=== PATIENT | male | born 1980 | race Caucasian/White ===

== ENCOUNTER 2019-11-02 00:42 | Emergency (ER) | payer SELFPAY ==
[2019-11-02] MEDS ORDERED: Ketorolac 30 MG/ML SDV IVPUSH ONE (00:46)
[2019-11-02] MEDS ORDERED: Sodium Chloride 0.9% 10 ML Syringe FLUSH PRN (00:46)
[2019-11-02] MEDS ORDERED: Sodium Chloride 0.9% 2.5 ML Syringe FLUSH PRN (00:46)
[2019-11-02] MEDS ORDERED: Lidocaine 5% 700 MG Patch ONE (00:54)
--- NOTE | 2019-11-02 00:54 | EDM.PDOC ---
ED HPI GENERAL MEDICAL PROBLEM - General Chief Complaint: Chest Pain Stated Complaint: cough, right rib pain, chest wall pain Time Seen by Provider: 11/02/19 00:45 Source of Information: Reports: Patient History Limitations: Reports: No Limitations - History of Present Illness INITIAL COMMENTS - FREE TEXT/NARRATIVE: History of present illness: [Patient is 39-year-old male with a history of smoking who presents with a cough for the last month, right-sided rib pain that began earlier this evening. He states he felt like his cough was improving over the last week but during one episode of coughing earlier tonight felt a pop in his right rib cage and since then has had pain and difficulty with deep inspiration due to the pain. He denies any cardiac history. Denies chest pain, only endorses chest wall pain. Denies fever. Denies known COVID-19 exposure. Denies recent travel. Denies vomiting, diarrhea, and no other URI symptoms beyond the cough. Has not taken anything to relieve his symptoms.] Review of systems: As per history of present illness and below otherwise all systems reviewed and negative. Past medical history: As per history of present illness and as reviewed below otherwise noncontributory. Surgical history: As per history of present illness and as reviewed below otherwise noncontributory. Social history: No reported history of drug or alcohol abuse. Family history: As per history of present illness and as reviewed below otherwise noncontributory. Physical exam: HEENT: Atraumatic, normocephalic, pupils reactive, negative for conjunctival pallor or scleral icterus, mucous membranes moist, throat clear, neck supple, nontender, trachea midline. Lungs: Clear to auscultation, breath sounds equal bilaterally, chest nontender. Heart: S1S2, regular, negative for clicks, rubs, or JVD. Abdomen: Soft, nondistended, nontender. Negative for masses or hepatosplenomegaly. Negative for costovertebral tenderness. Chest Wall: Right sided rib tenderness, no deformity or bruising noted. Pelvis: Stable nontender. Genitourinary: Deferred. Rectal: Deferred. Extremities: Atraumatic, negative for cords or calf pain. Neurovascular unremarkable. Neuro: Awake, alert, oriented. Motor and sensory grossly intact throughout. Exam nonfocal. Diagnostics: [] Therapeutics: [] Impression: [] Plan: [] Definitive disposition and diagnosis as appropriate pending reevaluation and review of above. R upper ribs/chest Pain Score (Numeric/FACES): 10 - Related Data Allergies Allergy/AdvReac Type Severity Reaction Status Date / Time No Known Allergies Allergy Verified 11/02/19 00:49 Home Meds: Home Meds Azithromycin 1 gm PO ASDIRECTED 5 Days #1 packet 11/02/19 [Rx] Lidocaine 5% [Lidoderm 5%] 1 patch TOP DAILY #5 patch 11/02/19 [Rx] Social & Family History - Tobacco Use Smoking Status *Q: Current Every Day Smoker ED ROS GENERAL - Review of Systems Review Of Systems: Comprehensive ROS is negative, except as noted in HPI. ED EXAM, GENERAL - Physical Exam Exam: See Below (see H and P) EKG INTERPRETATION EKG Date: 11/02/19 Time: 00:46 Rhythm: NSR Rate (Beats/Min): 78 [place]: Normal P-Wave: Present QRS: Normal ST-T: Normal QT: Normal Comparison: NA - No Prior EKG Course - Vital Signs Text/Narrative:: Patient with right-sided rib pain after coughing. No evidence for pneumonia, no fever, stable vital signs, cough is been present for a month, likely bronchitis, history of smoking, low suspicion for COVID-19, no fever, no body aches, no recent or known exposures, troponin negative, EKG nonischemic, pain is improved with Toradol and Lidoderm. Send him home with prescriptions for Lidoderm patches and Z-Fortino. Return precautions also provided. Stable and well- appearing at discharge. Last Recorded V/S: Last Vital Signs Temp 36.1 C 11/02/19 00:46 Pulse 90 11/02/19 00:46 Resp 20 11/02/19 00:46 BP 144/103 H 11/02/19 00:46 Pulse Ox 97 11/02/19 00:58 - Orders/Labs/Meds Orders: Active Orders 24 hr Category Date Time Status Cardiac Monitoring [RC] . DIRECTED Care 11/02/19 00:46 Active EKG Documentation Completion [RC] STAT Care 11/02/19 00:46 Active Oxygen Therapy [RC] ASDIRECTED Care 11/02/19 00:46 Active Pulse Oximetry [RC] ASDIRECTED Care 11/02/19 00:46 Active Sodium Chloride 0.9% [Saline Flush] Med 11/02/19 00:46 Active 10 ml FLUSH ASDIRECTED PRN Sodium Chloride 0.9% [Saline Flush] Med 11/02/19 00:46 Active 2.5 ml FLUSH ASDIRECTED PRN Saline Lock Insert [OM.PC] Stat Oth 11/02/19 00:46 Ordered Medication Orders Sodium Chloride (Saline Flush) 10 ml FLUSH ASDIRECTED PRN PRN Reason: Keep Vein Open Sodium Chloride (Saline Flush) 2.5 ml FLUSH ASDIRECTED PRN PRN Reason: Keep Vein Open Labs: Laboratory Tests 11/02/19 11/02/19 Range/Units 00:45 00:45 WBC 11.68 H (4.0-11.0) K/uL RBC 4.96 (4.50-5.90) M/uL Hgb 16.2 (13.0-17.0) g/dL Hct 48.4 (38.0-50.0) % MCV 97.6 (80.0-98.0) fL MCH 32.7 H (27.0-32.0) pg MCHC 33.5 (31.0-37.0) g/dL RDW Std Deviation 45.7 (28.0-62.0) fl RDW Coeff of [place] 13 (11.0-15.0) % Plt Count 270 (150-400) K/uL MPV 10.00 (7.40-12.00) fL Neut % (Auto) 56.7 (48.0-80.0) % Lymph % (Auto) 32.3 (16.0-40.0) % [place] % (Auto) 9.9 (0.0-15.0) % Eos % (Auto) 0.8 (0.0-7.0) % Baso % (Auto) 0.3 (0.0-1.5) % Neut # (Auto) 6.6 H (1.4-5.7) K/uL Lymph # (Auto) 3.8 H (0.6-2.4) K/uL [place] # (Auto) 1.2 H (0.0-0.8) K/uL Eos # (Auto) 0.1 (0.0-0.7) K/uL Baso # (Auto) 0.0 (0.0-0.1) K/uL Sodium 136 (136-148) mmol/L Potassium 3.8 (3.5-5.1) mmol/L Chloride 100 (98-107) mmol/L Carbon Dioxide 27.8 (21.0-32.0) mmol/L BUN 11 (7.0-18.0) mg/dL Creatinine 0.8 (0.8-1.3) mg/dL Est Cr Clr Drug Dosing 101.35 mL/min Estimated GFR (MDRD) > 60.0 ml/min Glucose 94 (74-106) mg/dL Calcium 8.6 (8.5-10.1) mg/dL Total Bilirubin 0.8 (0.2-1.0) mg/dL AST 51 H (15-37) IU/L ALT 65 H (14-63) IU/L Alkaline Phosphatase 132 H (46-116) U/L Troponin I < 0.050 (0.000-0.056) ng/mL Total Protein 7.1 (6.4-8.2) g/dL Albumin 3.8 (3.4-5.0) g/dL Globulin 3.3 (2.6-4.0) g/dL Albumin/Globulin Ratio 1.2 (0.9-1.6) Meds: Medications Generic Name Dose Route Start Last Admin Trade Name Freq PRN Reason Stop Dose Admin Sodium Chloride 10 ml 11/02/19 00:46 Saline Flush FLUSH ASDIRECTED PRN Keep Vein Open Sodium Chloride 2.5 ml 11/02/19 00:46 Saline Flush FLUSH ASDIRECTED PRN Keep Vein Open Discontinued Medications Generic Name Dose Route Start Last Admin Trade Name Freq PRN Reason Stop Dose Admin Ketorolac Tromethamine 15 mg 11/02/19 00:46 11/02/19 00:58 Toradol IVPUSH 11/02/19 00:47 15 mg ONETIME ONE Administration Lidocaine Confirm 11/02/19 00:54 Lidoderm 5% Administered 11/02/19 00:55 Dose 700 mg .ROUTE .STK-MED ONE Lidocaine 700 mg 11/02/19 00:56 11/02/19 00:59 Lidoderm 5% TOP 11/02/19 00:57 700 mg ONETIME ONE Administration Departure - Departure Time of Disposition: 01:49 Disposition: Home, Self-Care 01 Condition: Good Clinical Impression: Rib pain on right side, Bronchitis - Discharge Information Prescriptions: Azithromycin 1 gm PO ASDIRECTED 5 Days #1 packet Lidocaine 5% [Lidoderm 5%] 1 patch TOP DAILY #5 patch Instructions: Costochondritis, [id number] Referrals: PCP,None [Primary Care Provider] - Forms: ED Department Discharge Additional Instructions: The following information is given to patients seen in the emergency department who are being discharged to home. This information is to outline your options for follow-up care. We provide all patients seen in our emergency department with a follow-up referral. The need for follow-up, as well as the timing and circumstances, are variable depending upon the specifics of your emergency department visit. If you don't have a primary care physician on staff, we will provide you with a referral. We always advise you to contact your personal physician following an emergency department visit to inform them of the circumstance of the visit and for follow-up with them and/or the need for any referrals to a consulting specialist. The emergency department will also refer you to a specialist when appropriate. This referral assures that you have the opportunity for follow-up care with a specialist. All of these measure are taken in an effort to provide you with optimal care, which includes your follow-up. Under all circumstances we always encourage you to contact your private physician who remains a resource for coordinating your care. When calling for follow-up care, please make the office aware that this follow-up is from your recent emergency room visit. If for any reason you are refused follow-up, please contact the [facility] Emergency Department at and asked to speak to the emergency department charge nurse. Sepsis Event Note - Evaluation Sepsis Screening Result: No Definite Risk - Focused Exam Vital Signs: Vital Signs Temp Pulse Resp BP Pulse Ox Pulse Ox 11/02/19 00:58 97 11/02/19 00:46 36.1 C 90 20 144/103 H 96 Date Exam was Performed: 11/02/19 Time Exam was Performed: 02:03 - My Orders Last 24 Hours: My Active Orders 11/02/19 00:46 Cardiac Monitoring [RC] . DIRECTED EKG Documentation Completion [RC] STAT Oxygen Therapy [RC] ASDIRECTED Pulse Oximetry [RC] ASDIRECTED Sodium Chloride 0.9% [Saline Flush] 10 ml FLUSH ASDIRECTED PRN Sodium Chloride 0.9% [Saline Flush] 2.5 ml FLUSH ASDIRECTED PRN Saline Lock Insert [OM.PC] Stat - Assessment/Plan Last 24 Hours: My Active Orders 11/02/19 00:46 Cardiac Monitoring [RC] . DIRECTED EKG Documentation Completion [RC] STAT Oxygen Therapy [RC] ASDIRECTED Pulse Oximetry [RC] ASDIRECTED Sodium Chloride 0.9% [Saline Flush] 10 ml FLUSH ASDIRECTED PRN Sodium Chloride 0.9% [Saline Flush] 2.5 ml FLUSH ASDIRECTED PRN Saline Lock Insert [OM.PC] Stat
[2019-11-02] MEDS ORDERED: Lidocaine 5% 700 MG Patch TOP ONE (00:56)
[2019-11-02 01:21] LABS: BLOOD UREA NITROGEN,BUN 11 mg/dL (7.0-18.0); CARBON DIOXIDE,CO2 27.8 mmol/L (21.0-32.0); CHLORIDE,CL 100 mmol/L (98-107); GLUCOSE RANDOM 94 mg/dL (74-106); POTASSIUM,K 3.8 mmol/L (3.5-5.1); SODIUM,NA 136 mmol/L (136-148)
--- NOTE | 2019-11-02 01:34 | CR ---
INDICATION: chest pain, right rib pain TECHNIQUE: Chest 2 views. COMPARISON: None. FINDINGS: Cardiovascular and mediastinum: Heart size and vasculature are normal in caliber and appearance. Mediastinum is within normal limits. Lungs and pleural spaces: Lungs are clear. No sign of infiltrate or mass. No sign of pleural effusion. No pneumothorax. Bones and soft tissues: No significant findings. IMPRESSION: Unremarkable chest. Dictated by: Neto Strong MD @ 11/02/2019 01:33:41 (Electronically Signed)
== END 2019-11-02 02:01 | disposition home or self-care (01) ==
LOC: MW.ED 00:42
DX: J40 Bronchitis, not specified as acute or chronic (principal); F17.200 Nicotine dependence, unspecified, uncomplicated
CPT/HCPCS: 36415; 71046; 80053; 84484; 85025; 93005; 96374; 99284; J1885; 99283

== ENCOUNTER 2020-07-17 05:21 | Emergency (ER) | payer SELFPAY ==
[2020-07-17] MEDS ORDERED: Sodium Chloride 0.9% 10 ML SDV IV PRN (05:41)
[2020-07-17] MEDS ORDERED: Sodium Chloride 0.9% 2.5 ML Syringe FLUSH PRN ×2 (05:41)
[2020-07-17] MEDS ORDERED: Sodium Chloride 0.9% 10 ML Syringe FLUSH PRN (05:41)
[2020-07-17] MEDS ORDERED: Dextrose 5%-0.9% NaCl 1,000 ML IV SCH (05:45)
--- NOTE | 2020-07-17 05:49 | EDM.PDOC ---
ED HPI GENERAL MEDICAL PROBLEM - General Chief Complaint: General Stated Complaint: LEFT HAND IS NUMB AND CAN'T MOVE IT Time Seen by Provider: 07/17/20 05:30 - History of Present Illness INITIAL COMMENTS - FREE TEXT/NARRATIVE: History of present illness: [] The patient woke up at 5 AM and he had numbness left forearm he did not notice any weakness. The patient was normal at 8 PM when he went to bed. The patient did not get up during the night. The patient smokes but really has no other risk factor for stroke. Uses no drugs except occasional marijuana and he does not drink. The patient has no young people in the family that had stroke or heart attack. Review of systems: As per history of present illness and below otherwise all systems reviewed and negative. Past medical history: As per history of present illness and as reviewed below otherwise noncontributory. Surgical history: As per history of present illness and as reviewed below otherwise noncontributory. Social history: No reported history of drug or alcohol abuse. Family history: As per history of present illness and as reviewed below otherwise noncontributory. Physical exam: Constitutional - well developed, well-nourished and in no acute distress HEENT - normocephalic, no evidence of trauma - external nose and mouth normal - no mass in neck and no JVD - mucosae moist EYES - full EOM, PERRL, no icterus - no evidence of inflammation, injection, or drainage Respiratory - no respiratory distress, equal bilateral expansion, lungs clear to auscultation and no abnormal lung sounds Cardiovascular - Regular Rhythm with S1 and S2 appreciated and no murmur, gallop or rub. GI - abdomen soft without distension or organomegaly - normal bowel sounds - no guard or rebound Musculoskeletal no gross deformity of long bones or joints - no tenderness, swelling or edema Neurologic - Alert and oriented times four - CN II-XII grossly intact -would be normal except the distal left arm below the elbow. He has numbness on the ulnar side of the distal one half of the forearm and he has inability to produce a strong extension of the wrist or abduction of the upper extremity digits or hold the thumb and little finger together against resistance. On the right side he does all of these things well. Psychiatric - appropriate mood and affect with normal thought content Hematologic - No petechiae or purpura - mucosa appropriate color and sclera not pale - normal nail bed color and refill Integument - no rash or evidence of trauma - normal turgor Diagnostics: [] Therapeutics: [] Impression: [] Plan: [] Definitive disposition and diagnosis as appropriate pending reevaluation and review of above. - Related Data Allergies Allergy/AdvReac Type Severity Reaction Status Date / Time No Known Allergies Allergy Verified 07/17/20 05:38 Home Meds: Home Meds . [No Known Home Meds] 07/17/20 [History] Past Medical History - Infectious Disease History Infectious Disease History: Reports: Chicken Pox - Past Surgical History HEENT Surgical History: Reports: Adenoidectomy, Myringotomy w Tube(s) ED ROS GENERAL - Review of Systems Review Of Systems: Comprehensive ROS is negative, except as noted in HPI. ED EXAM, GENERAL - Physical Exam Exam: See Below #1 Interpretation EKG Interpretation Comments: EKG sinus rhythm heart rate 70 [place] 134 QT [address] elevations in the precordium most consistent with early repole. Impression no acute injury Course - Vital Signs Text/Narrative:: [address] unenhanced appears to show a large subdural in the right area around the cerebellum and up into the little bit of the sulci between the frontal and temporal lobes. The patient admits he has a concussion his past history with no subdural. This is far from isodense and appears to be remote. CT read as arachnoid cyst and no findings to suggest need for interventional neuro radiology. Discussed with Dr. Patrick who accepted to [facility] Last Recorded V/S: Last Vital Signs Temp 36.2 C 07/17/20 05:21 Pulse 70 07/17/20 06:41 Resp 18 07/17/20 06:41 BP 111/63 07/17/20 06:41 Pulse Ox 96 07/17/20 06:41 - Orders/Labs/Meds Orders: Active Orders 24 hr Category Date Time Status Assess Neurological Status [RC] ASDIRECTED Care 07/17/20 05:41 Active Bedrest [RC] ASDIRECTED Care 07/17/20 05:41 Active Cardiac Monitoring [RC] . DIRECTED Care 07/17/20 05:41 Active EKG 12 Lead [EKG Documentation Completion] [RC] STAT Care 07/17/20 05:43 Active EKG Documentation Completion [RC] STAT Care 07/17/20 05:41 Active Height and Weight [RC] UPON Care 07/17/20 05:41 Active Initiate Acute Stroke Protocol [] STAT Care 07/17/20 05:41 Active NIH Stroke Scale [] ASDIRECTED Care 07/17/20 05:41 Active Nursing Bedside Swallow Screen [] ASDIRECTED Care 07/17/20 05:41 Active Oxygen Therapy [] ASDIRECTED Care 07/17/20 05:41 Active Peripheral IV Care [] ASDIRECTED Care 07/17/20 05:42 Active Stroke Education, General [] Click to Edit Care 07/17/20 05:41 Active Vital Signs [] Q15M Care 07/17/20 05:41 Active Dextrose 5%-0.9% NaCl [Dextrose 5%-Normal Saline] 1,000 Med 07/17/20 05:45 Active ml IV ASDIRECTED Sodium Chloride 0.9% [Normal Saline] Med 07/17/20 05:41 Active 10 ml IV ASDIRECTED PRN Sodium Chloride 0.9% [Saline Flush] Med 07/17/20 05:41 Active 10 ml FLUSH ASDIRECTED PRN Sodium Chloride 0.9% [Saline Flush] Med 07/17/20 05:41 Active 2.5 ml FLUSH ASDIRECTED PRN Sodium Chloride 0.9% [Saline Flush] Med 07/17/20 05:41 Active 2.5 ml FLUSH ASDIRECTED PRN Peripheral IV Insertion Adult [OM.PC] Stat Ot 07/17/20 05:41 Ordered Peripheral IV Insertion Adult [OM.PC] Stat Ot 07/17/20 05:41 Ordered Resuscitation Status Stat Resus Stat 07/17/20 05:41 Ordered Medication Orders Dextrose/Sodium Chloride (Dextrose 5%-Normal Saline) 1,000 mls @ 125 mls/hr IV ASDIRECTED TESSA Last Admin: 07/17/20 06:06 Dose: 125 mls/hr Documented by: IVERKAOmid Sodium Chloride (Saline Flush) 10 ml FLUSH ASDIRECTED PRN PRN Reason: Keep Vein Open Sodium Chloride (Saline Flush) 2.5 ml FLUSH ASDIRECTED PRN PRN Reason: Keep Vein Open Sodium Chloride (Normal Saline) 10 ml IV ASDIRECTED PRN PRN Reason: IV Use Sodium Chloride (Saline Flush) 2.5 ml FLUSH ASDIRECTED PRN PRN Reason: Keep Vein Open Labs: Laboratory Tests 07/17/20 07/17/20 07/17/20 Range/Units 05:42 05:42 05:42 WBC 6.03 (4.0-11.0) K/uL RBC 4.27 L (4.50-5.90) M/uL Hgb 14.2 (13.0-17.0) g/dL Hct 43.5 (38.0-50.0) % MCV 101.9 H (80.0-98.0) fL MCH 33.3 H (27.0-32.0) pg MCHC 32.6 (31.0-37.0) g/dL RDW Std Deviation 49.6 (28.0-62.0) fl RDW Coeff of [place] 13 (11.0-15.0) % Plt Count 308 (150-400) K/uL MPV 10.20 (7.40-12.00) fL Neut % (Auto) 50.5 (48.0-80.0) % Lymph % (Auto) 39.5 (16.0-40.0) % [place] % (Auto) 7.0 (0.0-15.0) % Eos % (Auto) 2.5 (0.0-7.0) % Baso % (Auto) 0.5 (0.0-1.5) % Neut # (Auto) 3.1 (1.4-5.7) K/uL Lymph # (Auto) 2.4 (0.6-2.4) K/uL [place] # (Auto) 0.4 (0.0-0.8) K/uL Eos # (Auto) 0.2 (0.0-0.7) K/uL Baso # (Auto) 0.0 (0.0-0.1) K/uL Nucleated RBC % 0.0 /100WBC Nucleated RBCs # 0 K/uL INR 1.02 APTT 23.5 (18.6-31.3) SEC Sodium 143 (136-148) mmol/L Potassium 3.8 (3.5-5.1) mmol/L Chloride 106 (98-107) mmol/L Carbon Dioxide 25.2 (21.0-32.0) mmol/L BUN 25 H (7.0-18.0) mg/dL Creatinine 0.8 (0.8-1.3) mg/dL Est Cr Clr Drug Dosing 113.04 mL/min Estimated GFR (MDRD) > 60.0 ml/min Glucose 110 H (74-106) mg/dL Calcium 8.9 (8.5-10.1) mg/dL Total Bilirubin 0.3 (0.2-1.0) mg/dL AST 42 H (15-37) IU/L ALT 49 (14-63) IU/L Alkaline Phosphatase 90 (46-116) U/L Troponin I < 0.050 (0.000-0.056) ng/mL Total Protein 6.8 (6.4-8.2) g/dL Albumin 3.5 (3.4-5.0) g/dL Globulin 3.3 (2.6-4.0) g/dL Albumin/Globulin Ratio 1.1 (0.9-1.6) TSH 3rd Generation 0.94 (0.36-3.74) uIU/mL Urine Opiates Screen (NEGATIVE) Ur Oxycodone Screen (NEGATIVE) Urine Methadone Screen (NEGATIVE) Ur Barbiturates Screen (NEGATIVE) Ur Phencyclidine Scrn (NEGATIVE) Ur Amphetamine Screen (NEGATIVE) U Methamphetamines Scrn (NEGATIVE) U Benzodiazepines Scrn (NEGATIVE) U Cocaine Metab Screen (NEGATIVE) U Marijuana (THC) Screen (NEGATIVE) Ethyl Alcohol 100 mg/dL 07/17/20 Range/Units 06:05 WBC (4.0-11.0) K/uL RBC (4.50-5.90) M/uL Hgb (13.0-17.0) g/dL Hct (38.0-50.0) % MCV (80.0-98.0) fL MCH (27.0-32.0) pg MCHC (31.0-37.0) g/dL RDW Std Deviation (28.0-62.0) fl RDW Coeff of [place] (11.0-15.0) % Plt Count (150-400) K/uL MPV (7.40-12.00) fL Neut % (Auto) (48.0-80.0) % Lymph % (Auto) (16.0-40.0) % [place] % (Auto) (0.0-15.0) % Eos % (Auto) (0.0-7.0) % Baso % (Auto) (0.0-1.5) % Neut # (Auto) (1.4-5.7) K/uL Lymph # (Auto) (0.6-2.4) K/uL [place] # (Auto) (0.0-0.8) K/uL Eos # (Auto) (0.0-0.7) K/uL Baso # (Auto) (0.0-0.1) K/uL Nucleated RBC % /100WBC Nucleated RBCs # K/uL INR APTT (18.6-31.3) SEC Sodium (136-148) mmol/L Potassium (3.5-5.1) mmol/L Chloride (98-107) mmol/L Carbon Dioxide (21.0-32.0) mmol/L BUN (7.0-18.0) mg/dL Creatinine (0.8-1.3) mg/dL Est Cr Clr Drug Dosing mL/min Estimated GFR (MDRD) ml/min Glucose (74-106) mg/dL Calcium (8.5-10.1) mg/dL Total Bilirubin (0.2-1.0) mg/dL AST (15-37) IU/L ALT (14-63) IU/L Alkaline Phosphatase (46-116) U/L Troponin I (0.000-0.056) ng/mL Total Protein (6.4-8.2) g/dL Albumin (3.4-5.0) g/dL Globulin (2.6-4.0) g/dL Albumin/Globulin Ratio (0.9-1.6) TSH 3rd Generation (0.36-3.74) uIU/mL Urine Opiates Screen NEGATIVE (NEGATIVE) Ur Oxycodone Screen NEGATIVE (NEGATIVE) Urine Methadone Screen NEGATIVE (NEGATIVE) Ur Barbiturates Screen NEGATIVE (NEGATIVE) Ur Phencyclidine Scrn NEGATIVE (NEGATIVE) Ur Amphetamine Screen NEGATIVE (NEGATIVE) U Methamphetamines Scrn NEGATIVE (NEGATIVE) U Benzodiazepines Scrn NEGATIVE (NEGATIVE) U Cocaine Metab Screen NEGATIVE (NEGATIVE) U Marijuana (THC) Screen POSITIVE (NEGATIVE) Ethyl Alcohol mg/dL Meds: Medications Generic Name Dose Route Start Last Admin Trade Name Freq PRN Reason Stop Dose Admin Dextrose/Sodium Chloride 1,000 mls @ 125 mls/hr 07/17/20 05:45 07/17/20 06:06 Dextrose 5%-Normal Saline IV 125 mls/hr ASDIRECTED TESSA Administration Sodium Chloride 10 ml 07/17/20 05:41 Saline Flush FLUSH ASDIRECTED PRN Keep Vein Open Sodium Chloride 2.5 ml 07/17/20 05:41 Saline Flush FLUSH ASDIRECTED PRN Keep Vein Open Sodium Chloride 10 ml 07/17/20 05:41 Normal Saline IV ASDIRECTED PRN IV Use Sodium Chloride 2.5 ml 07/17/20 05:41 Saline Flush FLUSH ASDIRECTED PRN Keep Vein Open Discontinued Medications Generic Name Dose Route Start Last Admin Trade Name Lee PRN Reason Stop Dose Admin Iopamidol 100 ml 07/17/20 06:21 07/17/20 06:22 Isovue Multipack-370 (76%) IVPUSH 07/17/20 06:22 100 ml ONETIME STA Administration Departure - Departure Time of Disposition: 09:00 Disposition: DC/Tfer to Acute Hospital 02 Condition: Good Clinical Impression: CVA, Cerebrovascular accident - Discharge Information Forms: ED Department Discharge Sepsis Event Note (ED) - Focused Exam Vital Signs: Vital Signs Temp Pulse Resp BP Pulse Ox 07/17/20 06:41 70 18 111/63 96 07/17/20 05:21 36.2 C 93 18 119/99 H 97 - My Orders Last 24 Hours: My Active Orders 07/17/20 05:41 Assess Neurological Status [RC] ASDIRECTED Bedrest [RC] ASDIRECTED Cardiac Monitoring [RC] . DIRECTED EKG Documentation Completion [RC] STAT Height and Weight [RC] UPON Initiate Acute Stroke Protocol [RC] STAT NIH Stroke Scale [RC] ASDIRECTED Nursing Bedside Swallow Screen [RC] ASDIRECTED Oxygen Therapy [RC] ASDIRECTED Stroke Education, General [RC] Click to Edit Vital Signs [RC] Q15M Sodium Chloride 0.9% [Normal Saline] 10 ml IV ASDIRECTED PRN Sodium Chloride 0.9% [Saline Flush] 10 ml FLUSH ASDIRECTED PRN Sodium Chloride 0.9% [Saline Flush] 2.5 ml FLUSH ASDIRECTED PRN Sodium Chloride 0.9% [Saline Flush] 2.5 ml FLUSH ASDIRECTED PRN Peripheral IV Insertion Adult [OM.PC] Stat Peripheral IV Insertion Adult [OM.PC] Stat Resuscitation Status Stat 07/17/20 05:42 Peripheral IV Care [RC] ASDIRECTED 07/17/20 05:43 EKG 12 Lead [EKG Documentation Completion] [RC] STAT 07/17/20 05:45 Dextrose 5%-0.9% NaCl [Dextrose 5%-Normal Saline] 1,000 ml IV ASDIRECTED - Assessment/Plan Last 24 Hours: My Active Orders 07/17/20 05:41 Assess Neurological Status [RC] ASDIRECTED Bedrest [RC] ASDIRECTED Cardiac Monitoring [RC] . DIRECTED EKG Documentation Completion [RC] STAT Height and Weight [RC] UPON Initiate Acute Stroke Protocol [RC] STAT NIH Stroke Scale [RC] ASDIRECTED Nursing Bedside Swallow Screen [RC] ASDIRECTED Oxygen Therapy [RC] ASDIRECTED Stroke Education, General [RC] Click to Edit Vital Signs [RC] Q15M Sodium Chloride 0.9% [Normal Saline] 10 ml IV ASDIRECTED PRN Sodium Chloride 0.9% [Saline Flush] 10 ml FLUSH ASDIRECTED PRN Sodium Chloride 0.9% [Saline Flush] 2.5 ml FLUSH ASDIRECTED PRN Sodium Chloride 0.9% [Saline Flush] 2.5 ml FLUSH ASDIRECTED PRN Peripheral IV Insertion Adult [OM.PC] Stat Peripheral IV Insertion Adult [OM.PC] Stat Resuscitation Status Stat 07/17/20 05:42 Peripheral IV Care [RC] ASDIRECTED 07/17/20 05:43 EKG 12 Lead [EKG Documentation Completion] [RC] STAT 07/17/20 05:45 Dextrose 5%-0.9% NaCl [Dextrose 5%-Normal Saline] 1,000 ml IV ASDIRECTED
[2020-07-17] MEDS ORDERED: Iopamidol 755 MG/ML 500 ML Multipack Bottle IVPUSH STA (06:21)
[2020-07-17 06:44] LABS: BLOOD UREA NITROGEN,BUN 25 mg/dL (7.0-18.0); CARBON DIOXIDE,CO2 25.2 mmol/L (21.0-32.0); CHLORIDE,CL 106 mmol/L (98-107); GLUCOSE RANDOM 110 mg/dL (74-106); POTASSIUM,K 3.8 mmol/L (3.5-5.1); SODIUM,NA 143 mmol/L (136-148)
--- NOTE | 2020-07-17 06:44 | CT ---
INDICATION: Acute stroke. TECHNIQUE: After standard noncontrast head CT, high resolution axial CT images acquired through the head and neck following rapid intravenous administration of iodinated contrast. Multiplanar MIPS of cranial and cervical vasculature performed. FINDINGS: Noncontrast head CT: There is no intracranial hemorrhage or fluid collection. The joya-white matter differentiation is maintained. The ventricles are of normal morphology. The basal cisterns are clear. A prominent lenticular CSF space is noted at the right side of the right cerebellar hemisphere. A mucous retention cyst is present in the left maxillary sinus. CTA head: There is normal filling of the intracranial vasculature; i.e. there is no large vessel occlusion or intracranial stenosis. There is no cerebral aneurysm or evidence for vascular malformation. CTA neck: There is no carotid or vertebral artery stenosis or dissection. The soft tissues of the neck are within normal limits. The cervical spine is in normal alignment. The lung apices are clear. IMPRESSION: Left maxillary sinus disease. Otherwise unremarkable CT head, CTA head and neck. Hung Price MD [facility] Please note that all CT scans at this facility use dose modulation, iterative reconstruction, and/or weight-based dosing when appropriate to reduce radiation dose to as low as reasonably achievable. Dictated by Hung Price MD @ Jul 17 2020 10:32AM Signed by Dr. Hung Price @ Jul 17 2020 10:54AM
--- NOTE | 2020-07-17 06:54 | CR ---
INDICATION: Stroke code TECHNIQUE: Chest 1 views COMPARISON: 11/02/2019 FINDINGS: Cardiovascular and mediastinum: Heart size and vasculature are normal in caliber and appearance. Lungs and pleural spaces: Lungs are clear. No sign of infiltrate or mass. No sign of pleural effusion. No pneumothorax. Bones and soft tissues: No significant findings. IMPRESSION: No acute findings and no significant changes from the prior exam. Dictated by Prosper Moreno MD @ Jul 17 2020 6:52AM Signed by Dr. Prosper Moreno @ Jul 17 2020 6:52AM
== END 2020-07-17 09:21 ==
LOC: MW.ED 05:21
DX: I63.9 Cerebral infarction, unspecified (principal); F17.200 Nicotine dependence, unspecified, uncomplicated
CPT/HCPCS: 36415; 70450; 70496; 70498; 71045; 80053; 80179; 80305; 84443; 84484; 85025; 85610; 85730; 93005; 99285; J7042; Q9967; 93010; 99284

== ENCOUNTER 2023-12-11 01:31 | Emergency (ER) | payer SELFPAY ==
[2023-12-11] MEDS: Sodium Chloride 0.9% 1,000 ML IV ONE (01:37)
[2023-12-11 01:47] LABS: HEMATOCRIT 43.1 % (42.0-52.0); HEMOGLOBIN 14.9 g/dL (14.0-18.0); MEAN CORPUSCULAR HGB CONC 34.6 g/dL (32.0-36.0); MEAN CORPUSCULAR VOLUME 95.4 fL (83.0-99.0); MEAN PLATELET VOLUME 9.5 fL (9.4-12.4); PLATELET COUNT,PLT 274 K/uL (150-400); RED BLOOD CELL COUNT 4.52 M/uL (4.52-5.90); WHITE BLOOD CELL COUNT,WBC 9.64 K/uL (3.9-11.3)
[2023-12-11 02:07] LABS: EOSINOPHILS ABSOLUTE MAN 0.29 K/uL (0.00-0.45); EOSINOPHILS PERCENT MAN 3 % (0-6); LYMPHOCYTES ABSOLUTE MAN 4.43 K/uL (1.00-4.80); LYMPHOCYTES PERCENT MAN 46 % (24-44); MONOCYTES ABSOLUTE MAN 0.67 K/uL (0.00-0.80); MONOCYTES PERCENT MAN 7 % (0-8); SEG NEUTROPHILS ABSOLUTE MAN 4.24 K/uL (1.80-7.70); SEG NEUTROPHILS PERCENT MAN 44 % (41-71)
[2023-12-11 02:09] LABS: ALBUMIN 3.5 g/dL (3.4-5.0); BILIRUBIN TOTAL 0.9 mg/dL (0.2-1.0); CALCIUM 8.8 mg/dL (8.5-10.1); CARBON DIOXIDE,CO2 26.8 mmol/L (21.0-32.0); CREATININE 0.9 mg/dL (0.8-1.3); EST CRCL DRUG DOSING (CG) 93.83 mL/min; MAGNESIUM 2.3 mg/dL (1.8-2.4); POTASSIUM,K 3.6 mmol/L (3.5-5.1)
== END 2023-12-11 02:56 | disposition home or self-care (01) ==
LOC: MW.ED 01:31
DX: S06.0X0A Concussion without loss of consciousness, initial encounter (principal); S01.01XA Laceration without foreign body of scalp, initial encounter; S01.111A Laceration without foreign body of right eyelid and periocular area, initial encounter; S01.511A Laceration without foreign body of lip, initial encounter; F10.120 Alcohol abuse with intoxication, uncomplicated; Y04.2XXA Assault by strike against or bumped into by another person, initial encounter
CPT/HCPCS: 12001; 12011; 36415; 70450; 72125; 80053; 80307; 83735; 85025; 96360; 99284; J7030; 12013; 99283